=== PATIENT | female | born 1990 | race Two or more races ===

== ENCOUNTER 2020-09-26 13:23 | Emergency (ER) | payer BC ==
[~2020-09-26] VITALS: Ht 160 cm; Wt 68.0 kg
[2020-09-26 13:59] LABS: Basophils # (auto) 0 10 ^3/uL (0-0.2); Basophils % (auto) 0.1 % (0.0-2.0); Eosinophils # (auto) 0 10 ^3/uL (0-0.8); Eosinophils % (auto) 0.4 % (0.0-7.0); Hematocrit 39.9 % (36.0-46.0); Hemoglobin 13.6 g/dL (12.2-16.2); Lymphocytes # (auto) 1.6 10 ^3/uL (0.4-5.4); Lymphocytes % (auto) 13.4 % (10.0-50.0); Mean Corpuscular Hemoglobin 29.9 pg (28.0-32.0); Mean Corpuscular Hgb Conc. 34.2 g/dL (32.0-36.0); Mean Corpuscular Volume 87.4 fL (80.0-100.0); Monocytes # (auto) 0.9 10 ^3/uL (0-1.3); Monocytes % (auto) 7.9 % (0.0-12.0); Neutrophils # (auto) 9.1 10 ^3/uL (1.6-8.6); Neutrophils % (auto) 78.2 % (37.0-80.0); Nucleated Red Blood Cells % 0.1 %; Platelet Count (auto) 252 10^3/uL (140-450); Red Blood Cells 4.56 10^6/uL (4.0-5.20); Red Cell Distribution Width 14.3 % (11.8-14.3); White Blood Cell 11.6 10^3/uL (4.4-10.8)
[2020-09-26 14:08] LABS: Albumin 3.2 g/dL (3.4-5.0); Calcium 9.1 mg/dL (8.5-10.1); Potassium 3.8 mmol/L (3.5-5.1)
[2020-09-26 14:11] LABS: BUN/Creatinine Ratio 8.3; Bilirubin, Total 0.3 mg/dL (0.2-1.0)
[2020-09-26 14:31] VITALS: BP 127/80
[2020-09-26 14:39] LABS: Urine Bacteria FEW /hpf (None Seen); Urine Blood TRACE /uL (Negative); Urine Specific Gravity 1.007 (1.001-1.035); Urine WBC 12 /hpf (0 - 5)
== END 2020-09-26 15:22 | disposition home or self-care (01) ==
LOC: ER 13:23
DX: O23.41 Unspecified infection of urinary tract in pregnancy, first trimester (principal); Z3A.10 10 weeks gestation of pregnancy
CPT/HCPCS: 36415; 76801; 80053; 81001; 84702; 85025

== ENCOUNTER 2021-04-03 09:20 | Observation (INO) | payer BC, OTHER ==
[~2021-04-03] VITALS: Ht 160 cm; Wt 83.5 kg
[2021-04-03] MEDS ORDERED: PREN-96 PO (09:55)
== END 2021-04-03 13:16 | disposition home or self-care (01) ==
LOC: LDRP 09:20
PROVIDERS: ADMIT Obstetrics & Gynecology Obstetrics; ATTEND Obstetrics & Gynecology Obstetrics
DX: O98.513 Other viral diseases complicating pregnancy, third trimester (principal); U07.1 COVID-19; R50.9 Fever, unspecified; Z3A.38 38 weeks gestation of pregnancy
CPT/HCPCS: 36415; 59025; 76818; 81002; 87426; G0378; G0379

== ENCOUNTER 2021-04-06 07:43 | Observation (INO) | payer BC ==
[~2021-04-06 07:43] MED LIST: PREN-96 PO
[2021-04-06] MEDS ORDERED: AZITTAB PO (15:00)
[2021-04-06] MEDS ORDERED: ACET1CAP14 PO (15:01)
== END 2021-04-06 17:32 | disposition home or self-care (01) ==
LOC: LDRP 14:10
PROVIDERS: ADMIT Obstetrics & Gynecology; ATTEND Obstetrics & Gynecology
DX: O98.53 Other viral diseases complicating the puerperium (principal); U07.1 COVID-19; O26.893 Other specified pregnancy related conditions, third trimester; R50.9 Fever, unspecified; O62.9 Abnormality of forces of labor, unspecified; Z3A.38 38 weeks gestation of pregnancy
CPT/HCPCS: 59025; 76818; 81002; G0378; G0379

== ENCOUNTER 2021-04-10 10:23 | Observation (INO) | payer BC ==
[~2021-04-10] VITALS: Ht 160 cm; Wt 190.0 kg
[~2021-04-10 10:23] MED LIST changes: +ACET1CAP14 PO; +AZITTAB PO
[2021-04-10 18:14] LABS: Urine Bacteria FEW /hpf (None Seen); Urine Blood Negative /uL (Negative); Urine Specific Gravity 1.008 (1.001-1.035); Urine WBC 4 /hpf (0 - 5)
[2021-04-10 18:24] LABS: INR 0.91 (0.9-1.15); Partial Thromboplastin Time 31.9 sec (23.6-33.0)
[2021-04-10 18:29] LABS: Basophils # (auto) 0 10 ^3/uL (0-0.2); Basophils % (auto) 0.2 % (0.0-2.0); Eosinophils # (auto) 0 10 ^3/uL (0-0.8); Eosinophils % (auto) 0.1 % (0.0-7.0); Hematocrit 39.2 % (36.0-46.0); Lymphocytes # (auto) 1.6 10 ^3/uL (0.4-5.4); Lymphocytes % (auto) 27.3 % (10.0-50.0); Mean Corpuscular Hemoglobin 29.3 pg (28.0-32.0); Mean Corpuscular Hgb Conc. 33.2 g/dL (32.0-36.0); Mean Corpuscular Volume 88.2 fL (80.0-100.0); Monocytes # (auto) 0.4 10 ^3/uL (0-1.3); Monocytes % (auto) 7.5 % (0.0-12.0); Neutrophils # (auto) 3.8 10 ^3/uL (1.6-8.6); Neutrophils % (auto) 64.9 % (37.0-80.0); Nucleated Red Blood Cells % 0.1 %; Red Blood Cells 4.45 10^6/uL (4.0-5.20); Red Cell Distribution Width 14.7 % (11.8-14.3); White Blood Cell 5.9 10^3/uL (4.4-10.8)
[2021-04-10 18:34] LABS: Albumin 2.4 g/dL (3.4-5.0); Calcium 8.4 mg/dL (8.5-10.1)
[2021-04-10 18:38] LABS: BUN/Creatinine Ratio 9.4; Bilirubin, Total 0.5 mg/dL (0.2-1.0); Total Protein 6.3 g/dL (6.4-8.2); Uric Acid 5.4 mg/dL (2.6-6.0)
== END 2021-04-10 19:46 | disposition home or self-care (01) ==
LOC: LDRP 14:18
PROVIDERS: ADMIT Obstetrics & Gynecology Obstetrics; ATTEND Obstetrics & Gynecology Obstetrics
DX: O98.53 Other viral diseases complicating the puerperium (principal); U07.1 COVID-19; O62.9 Abnormality of forces of labor, unspecified; Z3A.39 39 weeks gestation of pregnancy; Z79.899 Other long term (current) drug therapy
CPT/HCPCS: 36415; 59025; 76818; 80053; 81001; 81002; 84550; 85025; 85610; 85730; 86850; 86900; 86901; 94760; G0378; G0379

== ENCOUNTER 2021-04-12 07:07 | Observation (INO) | payer BC ==
[~2021-04-12 07:07] MED LIST changes: -AZITTAB PO
== END 2021-04-12 10:29 | disposition home or self-care (01) ==
LOC: LDRP 07:07
PROVIDERS: ADMIT Obstetrics & Gynecology; ATTEND Obstetrics & Gynecology
DX: O98.513 Other viral diseases complicating pregnancy, third trimester (principal); U07.1 COVID-19; O62.9 Abnormality of forces of labor, unspecified; O26.853 Spotting complicating pregnancy, third trimester; Z3A.39 39 weeks gestation of pregnancy; Z91.040 Latex allergy status; Z79.899 Other long term (current) drug therapy
CPT/HCPCS: 36415; 59025; 76818; 81002; 87426; G0378; G0379; U0003

== ENCOUNTER 2021-04-13 08:29 | Inpatient (IN) | payer BC ==
[~2021-04-13] VITALS: Ht 160 cm; Wt 83.5 kg
[2021-04-14] MEDS ORDERED: BUTORPHANOL TARTRATE 2 MG/1 ML VIAL IV PRN ×2 (15:30)
[2021-04-14] MEDS ORDERED: DERMOPLAST 60ML BOTTLE TOP PRN (15:30)
[2021-04-14] MEDS ORDERED: LACTATED RINGER'S 1,000 ML IV SCH (15:30)
[2021-04-14] MEDS ORDERED: LIDOCAINE 2%HCL (LOCAL ANESTH.) INJ 20ML MDV IJ PRN (15:30)
[2021-04-14] MEDS ORDERED: PROMETHAZINE HCL 25 MG/ML 1ML IV PRN (15:30)
[2021-04-14] MEDS ORDERED: LACT. RINGERS/OXYTOCIN 20UNITS 1,000 ML IV SCH ×2 (15:45→21:30)
[2021-04-14] MEDS ORDERED: LACT. RINGERS/OXYTOCIN 20UNITS 500 ML IV ONE ×2 (15:45→16:15)
[2021-04-14] MEDS: WITCH HAZEL-GLYCERIN PAD TOP PRN (15:47)
[2021-04-14] MEDS: PHISODERM TOP SOLN 240ML BTL TOP PRN (15:48)
[2021-04-14 16:01] LABS: Urine Bacteria FEW /hpf (None Seen); Urine Blood Negative /uL (Negative); Urine Mucus FEW (None Seen); Urine WBC 3 /hpf (0 - 5)
[2021-04-14 16:14] LABS: Amphetamine Screen, Urine NEGATIVE (NEGATIVE); Barbiturate Scree,Urine NEGATIVE (NEGATIVE); Benzodiazephine Screen, Urine NEGATIVE (NEGATIVE); Cannabinoid Screen, Urine NEGATIVE (NEGATIVE); Cocaine Screen, Urine NEGATIVE (NEGATIVE); Opiate Scree,Urine NEGATIVE (NEGATIVE); Phencyclidine Screen, Urine NEGATIVE (NEGATIVE)
[2021-04-14 16:59] LABS: Albumin 2.7 g/dL (3.4-5.0); Calcium 8.6 mg/dL (8.5-10.1); Potassium 3.6 mmol/L (3.5-5.1)
[2021-04-14 17:03] LABS: BUN/Creatinine Ratio 13.6; Bilirubin, Total 0.7 mg/dL (0.2-1.0); Total Protein 6.6 g/dL (6.4-8.2)
[2021-04-14 17:19] LABS: INR 0.9 (0.9-1.15); Partial Thromboplastin Time 28.2 sec (23.6-33.0)
[2021-04-14] MEDS ORDERED: LIDOCAINE HCL 2 %PF INJ 10ML AMP IJ ONE (17:30)
[2021-04-14] MEDS ORDERED: ROPIVACAINE HCL 200 ML EPI SCH (17:30)
[2021-04-14] MEDS ORDERED: NALOXONE HCL 0.4 MG/ML VIAL IV ONE (17:30)
[2021-04-14] MEDS ORDERED: ePHEDrine SULFATE 50 MG/ML AMP IV ONE (17:30)
[2021-04-14 17:33] LABS: Basophils # (auto) 0 10 ^3/uL (0-0.2); Basophils % (auto) 0.1 % (0.0-2.0); Eosinophils # (auto) 0 10 ^3/uL (0-0.8); Eosinophils % (auto) 0.1 % (0.0-7.0); Hematocrit 41.5 % (36.0-46.0); Hemoglobin 13.9 g/dL (12.2-16.2); Lymphocytes # (auto) 1.4 10 ^3/uL (0.4-5.4); Lymphocytes % (auto) 10.5 % (10.0-50.0); Mean Corpuscular Hemoglobin 29.1 pg (28.0-32.0); Mean Corpuscular Hgb Conc. 33.4 g/dL (32.0-36.0); Mean Corpuscular Volume 87.2 fL (80.0-100.0); Monocytes # (auto) 0.7 10 ^3/uL (0-1.3); Monocytes % (auto) 5.3 % (0.0-12.0); Neutrophils # (auto) 11.3 10 ^3/uL (1.6-8.6); Nucleated Red Blood Cells % 0.1 %; Red Blood Cells 4.76 10^6/uL (4.0-5.20); Red Cell Distribution Width 14.5 % (11.8-14.3); White Blood Cell 13.5 10^3/uL (4.4-10.8)
[2021-04-14] MEDS ORDERED: fentaNYL CITRATE 100 MCG/2 ML VL IV ONE (17:45)
[2021-04-14] MEDS ORDERED: TERBUTALINE SULFATE 1 MG/ML 1ML VIAL SC PRN (21:30)
[2021-04-15 03:30] VITALS: BP 120/72
[2021-04-15] MEDS ORDERED: ONDANSETRON ODT 4 MG TAB PO PRN (04:15)
[2021-04-15] MEDS ORDERED: ACETAMINOPHEN 325 MG TAB PO PRN (04:15)
[2021-04-15 06:06] LABS: RPR Non Reactive (Non Reactive)
[2021-04-15 08:45] VITALS: BP 136/74
[2021-04-15] MEDS: IBUPROFEN 600 MG TAB PO PRN ×2 (08:45→14:55)
[2021-04-15 12:30] VITALS: BP 133/77
[2021-04-15 14:54] VITALS: BP 128/70
[2021-04-15 19:30] VITALS: BP 128/76
[2021-04-15] MEDS: WITCH HAZEL-GLYCERIN PAD TOP PRN (22:54)
[2021-04-15] MEDS: PHISODERM TOP SOLN 240ML BTL TOP PRN (22:54)
[2021-04-15 23:30] VITALS: BP 134/74
[2021-04-16 02:44] VITALS: BP 136/78
[2021-04-16 07:30] VITALS: BP 133/83
[2021-04-16] MEDS: IBUPROFEN 600 MG TAB PO PRN (08:10)
[2021-04-16 11:34] VITALS: BP 133/80
== END 2021-04-16 13:25 | disposition home or self-care (01) | DRG 805 ==
LOC: LDRP 04-14 14:18 → OBSVTOIN 04-14 15:00 → LDRP 04-14 15:05
PROVIDERS: ADMIT Obstetrics & Gynecology; ATTEND Obstetrics & Gynecology
PROC: 0HQ9XZZ Repair Perineum Skin, External Approach (ICD-10-PCS; principal; 2021-04-14)
PROC: 10E0XZZ Delivery of Products of Conception, External Approach (ICD-10-PCS; 2021-04-14)
PROC: 3E0R3BZ Introduction of Anesthetic Agent into Spinal Canal, Percutaneous Approach (ICD-10-PCS; 2021-04-14)
PROC: 00HU33Z Insertion of Infusion Device into Spinal Canal, Percutaneous Approach (ICD-10-PCS; 2021-04-14)
DX: O98.52 Other viral diseases complicating childbirth (principal); U07.1 COVID-19; Z37.0 Single live birth; O70.0 First degree perineal laceration during delivery; Z3A.39 39 weeks gestation of pregnancy
CPT/HCPCS: 36415; 59025; 59409; 62282; 80053; 80307; 81001; 81002; 85025; 85610; 85730; 86592; 86850; 86900; 86901; 87426; 94760; 96360; 96361; 96365; 96374; G0378; J2590